=== PATIENT | female | born 1990 | race Caucasian/White ===

== ENCOUNTER → 2018-07-08 | Outpatient (CLI) | payer MEDICAID, SELFPAY ==
[2018-07-15 13:10] LABS: HPV Reflexed? NOT INDICATED
== END | disposition home or self-care (01) ==
PROVIDERS: Visit Provider Obstetrics & Gynecology
DX: Z12.4 Encounter for screening for malignant neoplasm of cervix (principal)
CPT/HCPCS: 88175; G0145

== ENCOUNTER 2018-09-02 09:48 | Day surgery (SDC) | payer MEDICAID, SELFPAY ==
[2018-07-15 10:30] VITALS: BMI 23.8
--- NOTE | 2018-08-12 12:00 | HP_ITS ---
Intake Intake Visit Reasons: 1 WK F/U External Hemorrhoids Casing Fluid Tender Required: No Is patient in pain?: No Allergies No Known Allergies Allergy (Verified 08/12/18 09:42) Medications Ibuprofen [Motrin] 800 mg PO Q6H PRN PRN #40 tab 12/26/14 [Rx Confirmed 08/12/18] Oxycodone [Oxyir] 10 mg PO Q6H PRN PRN #30 tab 12/26/14 [Rx Confirmed 08/12/18] Acyclovir 400 mg PO Q8 #7 days 01/07/15 [Rx Confirmed 08/12/18] hydrocortisone/lidocaine 1 g TOPICAL .2-4 #30 g 07/15/18 [Rx Confirmed 08/12/18] PFSH Medical History Hemorrhoids (Acute) Surgical History History of umbilical hernia (Acute) S/P tubal ligation (Acute) Social History Smoking Status: Current some day smoker alcohol intake: current alcohol intake frequency: a few times a month HPI HPI HPI: JAGDEEP ALBERT, is a 28 F who presents to the office today for HPI HPI Surgical H&P: Yes HPI: JAGDEEP ALBERT, is a 28 F who presents to the office today for follow-up from hemorrhoids, bright red bleeding and pain with bowel movements. Patient states she has been using the cream hydrocortisone 2.5% with lidocaine 5% twice daily not using it sits baths. Patient states her pain has improved from 5?6/10 to a 1?2/10 her which is constant for about a day and half her pain was a 7?8/10. Patient states she has not had really any further bleeding since she been using the cream. ROS General General: No weight change, fatigue or colon cancer Gastro Gastrointestinal: No abdominal pain, No nausea or vomiting, No diarrhea, No constipation, Yes blood in stool, No acid reflux, Yes hemorrhoids, No ulcers, No gallbladder problem, No black,tarry stools Exam Const General: cooperative, comfortable, no acute distress Resp Effort & Inspection: normal respiratory effort Cardio Rate: regular rate GI Inspection: non-distended Palpation: soft, no guarding, nontender Other: YADY: pt deferred Assessment & Plan Problems 1. Hemorrhoids K64.9 2. BRBPR (bright red blood per rectum) K62.5 Plan Discussed with patient recommend colonoscopy due to the red blood per rectum to make sure it is due to the hemorrhoids not due to anything else. Patient was not sure about the colonoscopy as far as financially how much it would cost and how much her insurance care source to pay. We will have the patient talk to her insurance will also send in the request to see what they will cover. Discussed with patient that if it is financially too much for her we could possibly do hemorrhoidectomy without doing a colonoscopy but she could be at risk for having another cause of the bleeding as we did not complete the colonoscopy. And it discussed that if she were to have further bleeding she would need a colonoscopy at that time. Did review the procedure for hemorrhoidectomy with the patient including but not limited to risk of bleeding, infection, additional hemorrhoids in the future were it was not done. Also discussed with patient that this is a painful procedure she will have to do sitz bath 2-3 times daily and also likely apply lidocaine cream 2-3 times daily for several weeks. She will also have to balance pain meds that can cause constipation with stool softeners and laxatives to have soft stools. Patient would plan to have the surgery late September and she has vacation prior. I have discussed the above with the patient. I have offered the patient colonoscopy for evaluation. I have explained the risks/benefits of the procedure and described the procedure. I have discussed the risks with the patient, including but not limited to: infection, bleeding, perforation of the GI tract requiring emergency surgery, inability to complete the procedure, injury to any internal organs, complications of anesthesia, etc. - the patient understands and agrees to proceed. I have answered all the patient's questions to the patient's satisfaction and the patient has no further questions. The patient has been given instructions for the colon cleansing preparation. 1 day of clears, MiraLAX Dulcolax split prep Tabatha Arellano M.D. Pager: [phone] [facility] [address] [place] [address], [facility], [address] [place] [address] Office: [phone] Plan Detail Follow Up We will plan to schedule colonoscopy Coding Level of Care Code Off vis,est,level 3 Diagnoses Hemorrhoids K64.9 BRBPR (bright red blood per rectum) K62.5 08/12/18 1012 <Electronically signed by Tabatha Engel am, MD> Date _ Tabatha Arellano MD I have re-examined the patient. There are no clinical changes since date of exam.
[2018-09-02] VITALS (7 sets, daily range): BP systolic 79–116; BP diastolic 48–71; PULSE 63–84; RESP 16–66; TEMP 36.2–36.8; O2SAT 98–100; BMI 22.1
--- NOTE | 2018-09-02 11:00 | OP.ENDO_ITS ---
09/02/2018 No Primary Care Physician Re : Colonoscopy procedure for Teri Mayen Dear Care Physician This procedure was performed on Sunday, September 02, 2018. My impressions and recommendations are as follows: Impressions : - Hemorrhoids found on perianal exam. - No specimens collected. Recommendations : - Discharge patient to home. - Continue present medications. - Repeat colonoscopy at age 51 for screening purposes. My findings are described in the full procedure note, which is enclosed. If I can be of further assistance, please feel free to contact me at Doctor phone number(s): , Work: . Sincerely, MD Tabatha Lopez MD 09/02/2018 11:00:05 AM This report has been signed electronically.
== END 2018-09-02 11:55 | disposition home or self-care (01) ==
LOC: EN 09:49 → AC 09:51
PROVIDERS: Referring Provider Surgery; Visit Provider Surgery
PROC: 0DJD8ZZ Inspection of Lower Intestinal Tract, Via Natural or Artificial Opening Endoscopic (ICD-10-PCS; CPT 45378; principal; 2018-09-02 10:55)
DX: K64.4 Residual hemorrhoidal skin tags (principal); K64.0 First degree hemorrhoids; F41.9 Anxiety disorder, unspecified; F17.200 Nicotine dependence, unspecified, uncomplicated
CPT/HCPCS: 45378; J7120

== ENCOUNTER → 2019-02-23 10:23 | Outpatient (CLI) | payer MEDICAID, SELFPAY ==
[2018-09-02 10:09] VITALS: BMI 22.1
== END ==
PROVIDERS: Visit Provider Advanced Practice Midwife
DX: N39.0 Urinary tract infection, site not specified (principal)
CPT/HCPCS: 87077; 87086; 87088; 87186

== ENCOUNTER → 2020-07-01 | Outpatient (CLI) | payer BC, MEDICAID, SELFPAY ==
[2018-09-02 10:09] VITALS: BMI 22.1
== END | disposition home or self-care (01) ==
PROVIDERS: Visit Provider Obstetrics & Gynecology
DX: Z11.3 Encounter for screening for infections with a predominantly sexual mode of transmission (principal)

== ENCOUNTER → 2020-08-09 | Outpatient (CLI) | payer BC, MEDICAID, SELFPAY ==
[2018-09-02 10:09] VITALS: BMI 22.1
[2020-08-12 05:06] LABS: Chlamydia By Nucleic Acid AMP Negative (Negative)
[2020-08-12 07:15] LABS: Gonococcus By Nucleic Acid AMP Negative (Negative)
== END | disposition home or self-care (01) ==
LOC: LABSPEC 13:21
PROVIDERS: Visit Provider Obstetrics & Gynecology
DX: Z11.3 Encounter for screening for infections with a predominantly sexual mode of transmission (principal)
CPT/HCPCS: 87491; 87591

== ENCOUNTER 2020-08-15 08:50 | Day surgery (SDC) | payer BC, MEDICAID, SELFPAY ==
[2018-09-02 10:09] VITALS: BMI 22.1
[2020-08-09 11:27] LABS: Hematocrit 37.1 % (37-47); Hemoglobin 12.1 g/dL (12.0-15.0); Mean Corp Hgb Conc 32.6 g/dL (32-36); Mean Corpuscular Hgb 29.7 pg (27.0-32.0); Mean Corpuscular Volume 91.2 fL (81-99); Mean Platelet Vol. 9.1 fl (6.2-12.0); Platelet Count 477 K/mm3 (150-450); RBC Distribution Width CV 12.3 % (11.6-14.6); RBC Distribution Width SD 41.1 fl (35.1-43.9); Red Blood Count 4.07 M/mm3 (4.2-5.4); White Blood Count 6.2 K/mm3 (4.4-11.0)
[2020-08-09 14:32] LABS: Prolactin 16.1 ng/mL; T4 Free Direct 0.98 ng/dL (0.76-1.46)
[2020-08-15] VITALS (7 sets, daily range): BP systolic 90–134; BP diastolic 45–89; PULSE 53–72; RESP 16–18; TEMP 36.1–37.5; O2SAT 94–100; BMI 20.7
[2020-08-15] MEDS: Lactated Ringers 1,000 ML 100 ML IV (09:29)
--- NOTE | 2020-08-15 09:35 | PCM.HP.BLA ---
History and Physical Date of Admission: 08/15/20 Surgical History and Physical Date: 08/15/2020 Name: JAGDEEP MAYEN Age: 30 Date of : 1990 Jagdeep Mayen, a 30 year old female 1 0 0 0 1, presents for Hysteroscopy dilation and curettage, esau endometrial ablation on August 15, 2020 at 10:30. -- Jagdeep has Previous BS with filshie clips in 2014. Cycles have become irregular. She related history of irregular menses with prolonged bleeding. Jagdeep is for hysteroscopy, D, Esau ablation. Manju to have COVID testing 08-14-20. No changes in her health since last vist. LMP 08-03-20. Allergy and medication lists current. Consents signed. Instructions given. Voiced no concerns. MEDICATIONS HISTORY: Patient is also takin. No Meds ALLERGIES: NKDA Infections - Chicken pox and Chlamydia Illnesses - depression and anxiety Accidents - no injuries of consequence Hospitalizations - hospitalized 1 day for PID Review of Systems: GENERAL - Denies fever, or chills SKIN - Denies skin changes EYES - Denies visual changes EARS - Denies difficulty hearing NOSE - Denies nasal congestion or bleeding MOUTH - Denies sore throat or difficulty swallowing NECK - Denies pain or swelling RESPIRATORY - Denies shortness of breath or wheezing CARDIOVASCULAR - Denies palpitations or chest pain GASTROINTESTINAL - Denies nausea, vomiting, diarrhea, constipation, abdominal pain, melena, or bright red blood GENITOURINARY - dysuria, frequency of urination, urgency and feeling of incomplete emptying MUSCULOSKELETAL - Denies joint or muscle pain NEUROLOGICAL - Denies localized numbness or weakness PSYCHIATRIC - Denies depression or anxiety ENDOCRINE - Denies heat or cold intolerance, weight loss or gain HEMATO-IMMUNOLOGIC - Denies excessive bleeding with cuts SOCIAL HISTORY: Alcohol Use - occasionally Smoking - used to smoke but quit Diet - no special diet Lifestyle - recent loss of spouse - 08/27 Exercise - active Seat Belt Use - always Employer - factory work Job Description - [employer] Illicit Drug Use - denies use of street drugs Sexual Activity - active- multiple partners and not currently sexually active Residence - rents an apartment Hours Worked - 40 hours per week Spouse-Sig Other Name - Arnold Mayen - in motorcycle accident 08/2014 Children Name(s) - Claudy (MICHELLE) Control - tubal FAMILY HISTORY: Mother: depression/anxiety. Sister: depression/anxiety. MENSTRUAL HISTORY: LMP Known?- DefiniteAmount/Duration - 7 to 10 days, Regularity - Irregular, LMP - 08/03/20, Age Onset Menarche - 15 PAST PREGNANCIES: Total Pregnancies - 1; Full Term Pregnancies - 1; Premature - 0; Abortions, Induced - 0; Abortions, Spontaneous - 0; Ectopics - 0; Multiple Births - 0; Living Children - 1 SURGICAL HISTORY: 1. 12/26/2014 Lap BTO with Filshie clips (umbilical hernia repair by Dr Jackson) ; Dr Marcos Saleem - 2. breast augmentation - 07/2015 ; - 3. [place] Teeth Removal, 2015 ; - PHYSICAL EXAM BP- 100/62 Sitting, Right arm, regular cuff Weight- 114.87829 lbs Height- 62.5 inch BMI:20.56 CONSTITUTIONAL - NAD, well nourished, and well developed SKIN - No rash, lesions, or ulcers HEENT - Normocephalic, PERRLA, EOMI NECK - No nodes, no nuchal rigidity and thyroid normal size and texture LYMPH NODES - Palpation of lymph nodes in neck and groins within normal limits ABDOMEN - Without hepatosplenomegaly, distention, masses, rebound, or guarding; normal bowel sounds; no hernias EXTREMITIES - No edema or calf tenderness NEUROLOGICAL - Cranial nerves II-XII grossly intact PSYCHIATRIC - A and O to time, place, person, mood and affect External Genital Vagina - non-tender without lesions Urethra/Urethral Meatus - non-tender Bladder - non-tender Vagina - vaginal hawthorne are pink and moist without loss of rugae and no evidence of atrophy Cervix - without cervical motion tenderness and has normal size and features without evident lesions Uterus - 5-6 cm in size, mobile and nontender Adnexa - clear without masses or tenderness ASSESSMENT/PLAN: 1. Encounter For Other Preprocedural Examination Pt with AUB for hysteroscopy D, endometrial ablation No changes in medications. No changes in health. No limitations in activity, no hx of complications with anesthesia R/b/a/ of procedure explained, all questions answered, consent was signed Already s/p tubal ligation 2. Abnormal Uterine And Vaginal Bleeding, Unspecified and Pelvic And Perineal Pain Pt with heavy menstrual cycles s/p Tubal. Discussed OCP vs Ablation vs hysterectomy. u/s Uterus 7.5cm, ovaries physiologic cysts
--- NOTE | 2020-08-15 10:25 | EMB_PTH ---
PATIENT: JAGDEEP ALBERT LOC: [facility] [place] U#:[id number] AGE/SX: 30/F ROOM: RE08/15/[address]: Dr. Alfredo Cm MD : 1990 BED: DIS: 08/15/2020 SPEC #: [id number] RECD: 08/15/20 11:33 STATUS: BLAKE CORNELL #: [id number] ERNESTO: 08/15/20 10:[address]: Alfredo Cm DEPT: SURGICAL PATHOLOGY RECD BY: Radha Enriquez ENTERED: 08/15/20 12:21 SP TYPE: ENDOM BX/C SANTY DR: No Primary Care Phys Tissues: Endometrium, NOS Procedures: Surgery Specimen Level IV HEADER OPERATION: Hysteroscopy, D & C Ivana PRE-OP DIAGNOSIS: Abnormal uterine and vaginal bleeding TISSUE SUBMITTED: Endometrial curettings MICROSCOPIC DIAGNOSIS Endometrium, curettings: Mildly disordered proliferative endometrium with focal glandular breakdown. Mild chronic endometritis. Rare fragments of benign superficial endocervix with squamous mucosa. AM:janette 08/16/2020 MICROSCOPIC DESCRIPTION Slides are reviewed. GROSS DESCRIPTION Received in fixative is one container labeled with the patient's name and designated endometrial curettings. The specimen consists of multiple fragments of pink hemorrhagic soft tissue that in aggregate measure 5 x 3 x 0.2 cm. The entire specimen is submitted in two cassettes. / SJ:janette 08/15/20 TC:3 CPT: 14951
--- NOTE | 2020-08-15 10:29 | OP.PCM_ITS ---
Report of Operation Date of Procedure: 08/15/20 Pre-Operative Diagnosis: Abnormal uterine bleeding Post-Operative Diagnosis: Abnormal uterine bleeding Surgery/Procedure Performed:: Hysteroscopy, dilation curettage, endometrial ablation Description of Surgical Findings:: Surgeon: Alfredo Cm MD Anesthesia: MAC EBL: 5 cc Urine output: 100 cc IV fluids: 600 cc Complications: None Specimen: Endometrial curettage Findings: Hysteroscope revealed no endometrial/uterine pathology. Ivana endometrial ablation device cavity length found to be 5 cm. Post procedure hysteroscopy revealed no new pathology. Consent: Patient with abnormal uterine bleeding in need of hysteroscopy dilation curettage endometrial ablation. Patient understands the risk of the procedure include but are not limited to visceral or vascular injury, prolonged h ospitalization, blood loss and need for transfusion, reoperation. Patient stated understanding and wished proceed. All questions were answered and consent was signed. Procedure: Patient was brought back to the OR where MAC anesthesia was found be adequate. Patient was prepared and draped in a dorsal lithotomy position with yellowfin stirrups. Weighted speculum was placed in the posterior aspect of vagina and cervical dilators were used to dilate cervix. Hysteroscope was inserted and above findings were noted. Sharp endometrial curettage was performed and all quadrants, and sent to pathology. Ivana endometrial ablation device with cavity length set to 5 cm was inserted under direct visualization. Ivana device safety test were passed x2. 120 seconds endometrial ablation performed. Ivana device removed under direct visualization. Post procedure hysteroscope with above findings. Good hemostasis was noted. All counts correct x2. Patient tolerated procedure well was brought to recovery in stable condition.
--- NOTE | 2020-08-15 10:32 | PCM.DC ---
Discharge Instructions Diet Discharge Diet: No restrictions Activity Discharge Activity: Return to Normal Activity, May Drive and May Shower May resume sexual activity in: 4-6 weeks Weight Bearing Status: Weight bearing as tolerated Dressing / Incision Call your doctor if your incision/area has: Continuous Slow Oozing, Sudden Increased Bleeding and Foul Smelling Discharge Call your doctor if you observe: Fever of 101 or Higher, Shortness of breath and Chest pain Follow Up Care Please Follow Up With: Alfredo Cm MD When: 2-week postoperative Test Results: Test results from this visit will be discussed in further detail at your follow-up appointment, if applicable. Discharge Plan Admission Attending Provider: Alfredo Cm Primary Care Provider: Care Physician,Radha Primary Discharge Orders/Prescriptions Prescriptions: No Action NK RF: 0 Disposition Discharge Orders: Discharge Patient (Routine); Ordered 08/15/20 Ordered By: Dr. Alfredo Cm
== END 2020-08-15 12:14 ==
LOC: SDC 08:50 → AC 08:50
PROVIDERS: Referring Provider Obstetrics & Gynecology; Visit Provider Obstetrics & Gynecology
PROC: 0U5B8ZZ Destruction of Endometrium, Via Natural or Artificial Opening Endoscopic (ICD-10-PCS; CPT 58558; principal; 2020-08-15 10:10)
DX: N71.1 Chronic inflammatory disease of uterus (principal); N92.0 Excessive and frequent menstruation with regular cycle; Z20.822 Contact with and (suspected) exposure to COVID-19; Z87.891 Personal history of nicotine dependence
CPT/HCPCS: 58563; 36415; 84146; 84439; 84443; 85027; 86850; 86900; 86901; 87426; 88305; C9803; J7120; J2405

== ENCOUNTER 2020-10-01 09:10 | Day surgery (SDC) | payer BC, MEDICAID, SELFPAY ==
[2020-09-25 13:46] VITALS: BMI 20.7
--- NOTE | 2020-10-01 | HEM_PTH ---
PATIENT: JAGDEEP ALBERT LOC: [facility] [place] U#:[id number] AGE/SX: 30/F ROOM: RE10/01/[address]: Dr. Tabatha Arellano MD : 1990 BED: DIS: 10/01/2020 SPEC #: [id number] RECD: 10/01/20 13:01 STATUS: BLAKE CORNELL #: [id number] ERNESTO: 10/01/20 00:[address]: Tabatha Arellano DEPT: SURGICAL PATHOLOGY RECD BY: Gume Rodríguez ENTERED: 10/01/20 13:02 SP TYPE: HEMORRHOID OTHR DR: No Primary Care Phys Tissues: HEMORRHOIDS Procedures: Surgery Specimen Level III HEADER OPERATION: Hemorrhoidectomy PRE-OP DIAGNOSIS: Hemorrhoids TISSUE SUBMITTED: Hemorrhoids MICROSCOPIC DIAGNOSIS Hemorrhoids, hemorrhoidectomy: Submucosal vascular ectasia and thrombosis consistent with hemorrhoid. AM:janette 10/02/2020 MICROSCOPIC DESCRIPTION Slides are reviewed. GROSS DESCRIPTION Received in fixative is one container labeled with the patient's name and designated hemorrhoids. The specimen consists of a polypoid piece of carrasquillo soft tissue measuring 2 x 1 x 0.5 cm. The specimen is bisected. Also present in the container are three pieces of carrasquillo-white skin measuring in aggregate 1 x 0.3 x 0.2 cm. The entire specimen is submitted in one cassette. / SJ:rg 10/01/20 TC:5 CPT: 29379
[2020-10-01 09:35] VITALS: BP 108/61; PULSE 60; RESP 14; TEMP 36.2; O2SAT 100; BMI 20.7
--- NOTE | 2020-10-01 09:42 | PCM.HP.BLA ---
History and Physical Date of Admission: 10/01/20 Date of Service: 09/25/20 Intake Vital Signs 09/25/20 13:44 09/25/20 13:46 Height 5 ft 2.5 in Weight: 115 lb 8 oz BMI 20.7 20.7 BP 109/62 Blood Pressure Location Rt brachial Position Sitting Respiration 16 Pulse 72 Pulse Source NIBP Temp 98.0 F Temp Source Temporal Pulse Oximetry (%) 98 Intake Visit Reasons: Hemorrhoids Chief Complaint: hemorrhoids Square Shear Operator Required: No Is patient in pain?: No Allergies No Known Allergies Allergy (Verified 09/25/20 13:45) Medications NK 08/08/20 [History Confirmed 09/25/20] Is last menstrual period known: No Post menopausal: No Patient : No PFSH Medical History (Updated 09/25/20 @ 14:[address] Tabatha Arellano MD) Alcohol use Anemia Anxiety Back pain Easy bruising Former smoker Hemorrhoids Restless legs Wears contact lenses Surgical History (Updated 09/25/20 @ 13:44 by Maeve Fuentes) H/O breast augmentation History of endometrial ablation History of umbilical hernia Hx of colonoscopy Hx of wisdom tooth extraction S/P tubal ligation Social History Smoking Status: Former smoker alcohol intake: current alcohol intake frequency: a few times a month HPI HPI HPI: JAGDEEP ALBERT, is a 30 F who presents to the office today for hemorrhoids. Patient states she has been having itching and pain denies any further bleeding and she has had previously but states a continue to be bothersome. Patient did have a colonoscopy in 2019 which only showed hemorrhoids otherwise normal colon. Patient is interested in having hemorrhoidectomy patient does understand that this procedure can be painful for a month or so after. Exam Const General: cooperative, healthy appearing, comfortable and no acute distress Neck Neck: normal visual inspection Resp Effort & Inspection: normal respiratory effort Cardio Rate: regular rate GI Inspection: non-distended Palpation: soft, no guarding and nontender Other: YADY: 12:00 external hemorrhoid and 3:00 external hemorrhoid, likely internal components with both of these (residual external tissue at about 7:00 does not appear to have an internal component.) No gross blood on exam are not other masses noted. Skin General: no rashes or lesions noted Neuro General: patient oriented x3 Psych Affect: normal affect COVID (Procedure Consent) Procedure Criteria Procedure Criteria: Yes Elective The surgeon/proceduralist and patient have discussed in detail the risk of exposure to and/or potential harm posed by the COVID-19 virus with having a surgery/procedure at this time versus the risk of delaying the surgery/procedure. It is not possible to know either the risk of delaying the surgery or procedure or chance of getting an infection with perfect accuracy, but a joint decision was made between the patient and the surgeon/proceduralist to proceed at this time with the scheduled surgery/procedure as indicated on the consent form. Assessment and Plan Assessment and Plan (1) Hemorrhoids: Status: Acute Plan - Dr. Tabatha Arellano MD: Discussed the procedure of hemorrhoidectomy with the patient including risks not limited to bleeding, infection, discomfort/pain after surgery and anesthesia. Patient also understood she would need to do sitz bath's couple times a day as well take stool softeners and try to avoid constipation with pain meds as well. Patient expressed understanding had no further questions this time. We will schedule hemorrhoidectomy. Tabatha Arellano M.D. Pager: [phone] [facility] [address] [place] [address], [address] [place] [address] Office: [phone] Coding Level of Care Code Off vis,est,level 3 Diagnoses Hemorrhoids K64.9 09/25/20 1414<Electronically signed by Tabatha Arellano MD>Date Tabatha Arellano MD
[2020-10-01] MEDS: Lactated Ringers 1,000 ML 100 ML IV (09:50)
[2020-10-01] MEDS: Lubricating Jelly 60 GM Tube 30 GM TOPICAL (10:48)
[2020-10-01] MEDS: BUPIVACAINE LIPOSOME/PF 20 ML VIAL OPERA.SITE (11:05)
[2020-10-01] MEDS: Dibucaine 30 GM Tube 1 APPLIC (11:05)
--- NOTE | 2020-10-01 11:18 | PCM.OPRPT ---
Report of Operation Date of Procedure: 10/01/20 Pre-Operative Diagnosis: Hemorrhoids Post-Operative Diagnosis: Same Surgery/Procedure Performed:: Hemorrhoidectomy Surgeon: Tabatha Arellano Type of Anesthesia: General/Supplemental Anesthesiologist: Kaleb Vega Special Medications: None Specimen's removed: Hemorrhoid Estimated Blood Loss (mL): < 10 cc Description of Procedure: Patient was brought to the operating room. Timeout was completed verifying correct patient, procedure, site, positioning out special equipment prior to beginning procedure. General seizure was induced. Patient was rolled into prone jackknife position on the OR table with appropriate padding. Tape was used to separate the gluteal cheeks. The perineum was prepped and draped in usual sterile fashion with Betadine. Local anesthesia of Exparel 20 cc was used. 10 cc was used for an anal block. Patient was noted to have external hemorrhoidal tissue at 12:00 (with 12:00 being superior) along with internal hemorrhoid as well. At 3:00 (right side) and 7:00 (left side) there is only residual external hemorrhoid tissue. The base of the 12:00 internal hemorrhoid was grasped and sutured with 2-0 Vicryl. The excess tissue was removed with electrocautery careful not to take any sphincter muscle. The hemorrhoidal column was closed using 2-0 chromic running locking suture. The 2 small areas with external residual hemorrhoidal tissue was excised using electrocautery. Interrupted sutures of 4-0 chromic were used at these locations. Gelfoam with dibucaine cream was rolled and placed in the anus. Area was dressed with ABDs and mesh panties were placed. Patient was extubated. Patient tolerated procedure well was taken to the postanesthesia care unit in stable condition. Complications none
--- NOTE | 2020-10-01 11:22 | DCINST_ITS ---
Discharge Instructions Procedure Rectal Surgery Diet Discharge Diet: No restrictions Activity Discharge Activity: Return to Normal Activity and May Not Drive (while you are taking narcotic pain medications. Do not drive, work with heavy equipment or s ign legal documents for 24 hours after your surgery.) Additional Activity Instructions:: Be aware that pain medications may cause nausea. You should typically eat light foods as you take your pain medications. Pain medications may also cause constipation, if you have difficulty with this please discuss with your doctor. Dressing / Incision Additional Dressing/Incision Instructions:: Leave the operative bandage on for 1 days. If a local anesthetic plug was placed in the anal area, try not to expel for [address]ucaine ointment on the perianal area as needed. Sitz baths twice daily and after bowel movements. Follow Up Care Please Follow Up With: Tabatha Arellano MD When: Please call [phone] to schedule a follow up appointment to be seen 7- 14 days after surgery. Test Results: Test results from this visit will be discussed in further detail at your follow-up appointment, if applicable. Discharge Plan Admission Attending Provider: Tabatha Arellano Primary Care Provider: Care Radha Haji Primary Discharge Orders/Prescriptions Prescriptions: New oxycodone-acetaminophen [Endocet] 5-325 mg tablet 1 - 2 tab PO Q6H PRN (Reason: pain) 7 Days Qty: 30 RF: 0 Referrals / Follow Up: Radha Becerra Primary [Primary Care Provider] - Disposition Disposition (needs filled in before D/C Order can be placed): Home, Self Care
[2020-10-01 11:28] VITALS: BP 108/61; BP 118/89; PULSE 82; RESP 18; TEMP 36.3; O2SAT 99
[2020-10-01 11:45] VITALS: BP 106/84; BP 108/61; PULSE 69; RESP 18; O2SAT 98
[2020-10-01 12:00] VITALS: BP 108/61; BP 110/72; PULSE 62; RESP 18; O2SAT 98
[2020-10-01 12:15] VITALS: BP 108/61; BP 111/73; PULSE 61; RESP 18; TEMP 36.4; O2SAT 100
[2020-10-01] MEDS: Acetaminophen 325 MG Tablet 650 MG PO (12:54)
[2020-10-01] MEDS: oxyCODONE 5 MG Tablet 10 MG PO (12:54)
[2020-10-01 13:28] VITALS: BP 108/61; BP 109/67; PULSE 53; RESP 16; TEMP 36.4; O2SAT 100
== END 2020-10-01 13:35 | disposition home or self-care (01) ==
LOC: SDC 09:11 → AC 09:15
PROVIDERS: Referring Provider Surgery; Visit Provider Surgery
PROC: (CPT 46255; principal; 2020-10-01 10:45)
DX: K64.5 Perianal venous thrombosis (principal); K64.9 Unspecified hemorrhoids; G25.81 Restless legs syndrome; Z86.2 Personal history of diseases of the blood and blood-forming organs and certain disorders involving the immune mechanism; Z87.891 Personal history of nicotine dependence
CPT/HCPCS: 46255; 87426; 88304; C9803; J7120; J2405

== ENCOUNTER 2020-10-03 12:10 | Emergency (ER) | payer BC, MEDICAID, SELFPAY ==
[2020-10-03 12:11] VITALS: BP 141/77; PULSE 84; RESP 18; TEMP 37; O2SAT 99; BMI 22.7
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
[2020-10-03] MEDS: oxyCODONE 5 MG Tablet PO (12:49)
== END 2020-10-03 12:52 | disposition home or self-care (01) ==
LOC: ED 12:33
PROVIDERS: Emergency Provider Emergency Medicine
DX: G89.18 Other acute postprocedural pain (principal); V43.52XA Car driver injured in collision with other type car in traffic accident, initial encounter; Y93.9 Activity, unspecified; Y92.9 Unspecified place or not applicable; F41.9 Anxiety disorder, unspecified; G25.81 Restless legs syndrome; Z86.2 Personal history of diseases of the blood and blood-forming organs and certain disorders involving the immune mechanism; Z87.19 Personal history of other diseases of the digestive system; Z87.891 Personal history of nicotine dependence
CPT/HCPCS: 99284

== ENCOUNTER 2020-11-05 09:20 | Day surgery (SDC) | payer BC, MEDICAID, SELFPAY ==
[2020-10-15 09:44] VITALS: BMI 22.7
[2020-11-05] VITALS (7 sets, daily range): BP systolic 77–108; BP diastolic 43–60; PULSE 55–74; RESP 16–18; TEMP 36.2–36.8; O2SAT 97–100; BMI 20.2
--- NOTE | 2020-11-05 | HEM_PTH ---
PATIENT: JAGDEEP ALBERT LOC: [facility] [place] U#:[id number] AGE/SX: 30/F ROOM: RE11/05/[address]: Dr. Tabatha Arellano MD : 1990 BED: DIS: 11/05/2020 SPEC #: [id number] RECD: 11/05/20 12:26 STATUS: BLAKE REDavid #: [id number] ERNESTO: 11/05/20 00:[address]: Tabatha Arellano DEPT: SURGICAL PATHOLOGY RECD BY: Gume Rodríguez ENTERED: 11/05/20 12:26 SP TYPE: HEMORRHOID OTHR DR: No Primary Care Phys Tissues: HEMORRHOIDS Procedures: Surgery Specimen Level III HEADER OPERATION: Hemorrhoidectomy PRE-OP DIAGNOSIS: S/P hemorrhoidectomy; residual hemorrhoid tags TISSUE SUBMITTED: Hemorrhoidal tissue MICROSCOPIC DIAGNOSIS Hemorrhoidal tissue: Polypoid fragments of skin with chronic inflammation, clinically residual hemorrhoidal tag status hemorrhoidectomy. See comment. SJ:janette 11/06/2020 COMMENT Please make reference to previous specimen ([id number]) hemorrhoids, hemorrhoidectomy with ?diagnosis of submucosal vascular ectasia and thrombosis consistent with hemorrhoid.? MICROSCOPIC DESCRIPTION Slides are reviewed. GROSS DESCRIPTION Received in fixative is one container labeled with the patient's name and designated hemorrhoidal tissue. The specimen consists of two pieces of carrasquillo-white skin measuring 0.6 x 0.5 x 0.3 cm and 0.5 x 0.3 x 0.2 cm. Both pieces are bisected. The entire specimen is submitted in one cassette. / SAURAV:janette 11/05/20 TC:5 CPT: 03004
[2020-11-05] MEDS: Lactated Ringers 1,000 ML 100 ML IV (09:48)
--- NOTE | 2020-11-05 10:21 | PCM.HP.BLA ---
History and Physical Date of Admission: 11/05/20 Date of Service: 10/15/20 Intake Vital Signs 10/15/20 09:44 BMI 22.7 Intake Visit Reasons: POST OP HEMRRHOIDECTOMY 10/01 Chief Complaint: hemorrhoids Allergies No Known Allergies Allergy (Verified 10/15/20 09:25) [facility] Medical History (Updated 10/15/20 @ 09:[address] Tabatha Arellano MD) Alcohol use Anemia Anxiety Back pain Easy bruising Former smoker Hemorrhoids Restless legs Wears contact lenses Surgical History (Updated 10/15/20 @ 09:26 by Laura Donahue) H/O breast augmentation History of endometrial ablation History of hysteroscopy History of umbilical hernia Hx of colonoscopy Hx of wisdom tooth extraction S/P hemorrhoidectomy S/P tubal ligation Social History household members: none Smoking Status: Former smoker alcohol intake: current alcohol intake frequency: a few times a month substance use type: does not use HPI HPI HPI: JAGDEEP ALBERT, is a 30 F who presents to the office today for follow-up from hemorrhoidectomy. Patient states she still has some residual hemorrhoidal tissue also been having issue with a rash on her gluteal cheeks unsure if it is from wearing a pad since surgery. Exam Const General: cooperative, healthy appearing, comfortable and no acute distress Neck Neck: normal visual inspection Resp Effort & Inspection: normal respiratory effort Cardio Rate: regular rate GI Inspection: non-distended Palpation: soft, no guarding and nontender Other: YADY: Patient does have some residual hemorrhoidal tissue at 12:00 as the suture has previously come out leaving her with some tags of skin at this area. Otherwise healing well. Irritation of her gluteal cheeks about 3-4 cm from the anus where they come in contact with each other. Skin General: no rashes or lesions noted Neuro General: patient oriented x3 Psych Affect: normal affect Assessment and Plan Assessment and Plan (1) S/P hemorrhoidectomy: Status: Acute (2) Residual hemorrhoid tags: Status: Acute Plan: Patient still has some external residual hemorrhoidal tissue as the suture from the hemorrhoidectomy did come out leaving to little dog tags at about 12:00. Patient discharged having these removed. Thus with patient that could remove these but would plan for the OR with MAC anesthesia. Patient was agreeable with plan. Discussed risk including but not limited to bleeding, infection, etc. Patient no further questions at this time. Tabatha Arellano M.D. Pager: [phone] [facility] [address] [place] [id number] Office: [phone] Coding Level of Care Code Global Post Op Diagnoses S/P hemorrhoidectomy Z98.890; Z87.19 Residual hemorrhoid tags K64.4 10/15/20 1433<Electronically signed by Tabatha Arellano MD>Date Tabatha Arellano MD
--- NOTE | 2020-11-05 11:52 | PCM.OPRPT ---
Report of Operation Date of Procedure: 11/05/20 Pre-Operative Diagnosis: Residual hemorrhoidal tag Post-Operative Diagnosis: Same Surgery/Procedure Performed:: Excision of residual hemorrhoidal tag Surgeon: Tabatha Arellano Type of Anesthesia: MAC/Supplemental Anesthesiologist: Kaleb Vega Specimen's removed: Hemorrhoidal tissue Estimated Blood Loss (mL): < 10 cc Description of Procedure: Patient was brought to the operating room placed in the right decubitus position on the operating table. Timeout was completed verifying correct patient, procedure, site, positioning, special equipment prior to beginning procedure. MAC anesthesia was induced. The perineum was prepped draped in usual sterile fashion with Betadine. Local anesthesia of 1% lidocaine with epinephrine and half percent bupivacaine one-to-one mixture was used. This was injected at the base of the residual hemorrhoidal tissue at 1130 and 1230. Electrocautery was used to excise the residual tissue. Suture of 2-0 chromic interrupted suture was used to close the defect. Hemostasis was assured. 4 x 4's were placed over the area along with ABD and mesh panties. Patient was taken to the postanesthesia care unit in stable condition. Complications none
[2020-11-05] MEDS: Bupivacaine Mpf 0.5% 30 ML VIAL (11:55)
[2020-11-05] MEDS: Lidocaine 1% /Epi 1:100 (20ml) 20 ML Vial (11:55)
--- NOTE | 2020-11-05 11:55 | DCINST_ITS ---
Discharge Instructions Procedure Rectal Surgery Diet Discharge Diet: No restrictions Activity Discharge Activity: Return to Normal Activity and May Not Drive (while you are taking narcotic pain medications. Do not drive, work with heavy equipment or s ign legal documents for 24 hours after your surgery.) Additional Activity Instructions:: Be aware that pain medications may cause nausea. You should typically eat light foods as you take your pain medications. Pain medications may also cause constipation, if you have difficulty with this please discuss with your doctor. Dressing / Incision Additional Dressing/Incision Instructions:: Okay to change the bandage after [address] lidocaine ointment on the perianal area as needed--[id number]. Sitz baths twice daily and after bowel movements. Follow Up Care Please Follow Up With: Tabatha Arellano MD When: Please call [phone] to schedule a follow up appointment to be seen 14 days after surgery. Test Results: Test results from this visit will be discussed in further detail at your follow-up appointment, if applicable. Discharge Plan Admission Attending Provider: Tabatha Arellano Primary Care Provider: Care Physician,Radha Primary Discharge Orders/Prescriptions Prescriptions: New oxycodone-acetaminophen [Endocet] 5-325 mg tablet 1 - 2 tab PO Q6H PRN (Reason: pain) 3 Days Qty: 15 RF: 0 Referrals / Follow Up: Care PhysicianRadha Primary [Primary Care Provider] - Disposition Disposition (needs filled in before D/C Order can be placed): Home, Self Care
== END 2020-11-05 12:47 | disposition home or self-care (01) ==
LOC: SDC 09:20 → AC 09:20
PROVIDERS: Referring Provider Surgery; Visit Provider Surgery
PROC: (CPT 46220; principal; 2020-11-05 10:45)
DX: K64.4 Residual hemorrhoidal skin tags (principal); Z87.19 Personal history of other diseases of the digestive system; Z87.891 Personal history of nicotine dependence
CPT/HCPCS: 00902; 46220; 87426; 88304; C9803; J7120; J2405

== ENCOUNTER 2021-09-01 09:10 | Emergency (ER) | payer BC, MEDICAID, SELFPAY ==
[2021-09-01 09:11] VITALS: BP 122/80; PULSE 77; RESP 14; TEMP 36.4; O2SAT 100; BMI 20.1
--- NOTE | 2021-09-01 09:51 | EDS_ITS ---
HPI HPI - URI History of Present Illness Chief Complaint: Sore Throat Informant: patient Onset/Context/Timing Onset: Days Context: Gradual Onset Timing: Continuous Current Severity: Mild Maximum Severity: Mild Worsened by: Swallowing Associated Symptoms Associated Symptoms: Negative for Nasal Congestion, Headache, Myalgias, Nausea, Vomiting, Shortness of Breath or Nonproductive cough Narrative Narrative: 31-year-old female no seen past medical or any significant past surgical history. States that she developed a sore throat about a week ago. Was seen in urgent care they did a monotest which was negative so they treated her for strep throat. They never did a strep test. But she states she did have white exudate bilaterally. She was treated with Zithromax Z-Daquan which she just finished a couple days ago. States she still has a sore throat now she has a swollen lymph node on the right side of her neck. Able to swallow. No fever. No vomiting or diarrhea. No cough. Prior similar symptoms: No Recent Illness/Hospitalization: No ROS ROS ED ROS Narrative Sore throat. Review of Systems ROS Unobtainable: Denies due to encephalopathy Constitutional Constitutional ED: Denies chills Eyes Eyes: Denies blurry vision ENT ENT ED: Reports ear pain and sore throat Cardiovascular Cardiovascular: Denies chest pain Respiratory/Chest Respiratory/Chest: Denies cough or dyspnea Gastrointestinal Gastrointestinal: Denies abdominal pain, constipation or diarrhea Genitourinary Genitourinary ED: Denies dysuria Musculoskeletal Musculoskeletal: Denies arthralgias Integumentary Denies abscess Neurologic Neurologic: Denies headache(s) Psychiatric Psychiatric: Denies anxiety Endocrine Endocrinology: Denies cold intolerance Hematologic/Lymphatic Hematologic/Lymphatic: Denies easy bleeding Allergic/Immunologic Allergic/Immunologic ED: Denies mouth swelling or tongue swelling [facility] Medical History Alcohol use Anemia Anxiety Back pain Easy bruising Former smoker Hemorrhoids Restless legs Wears contact lenses Home Medications oxycodone-acetaminophen 5 mg-325 mg tablet (Endocet) 1 - 2 tab PO Q6H PRN pain 3 days #15 tabs 11/05/20 [Rx Last Taken Unknown] amoxicillin 500 mg capsule 500 mg PO TID #30 caps 09/01/21 [Rx Last Taken Unknown] Allergy/AdvReac Type Severity Reaction Status Date / Time No Known Allergies Allergy Verified 09/01/21 09:13 Surgical History H/O breast augmentation History of endometrial ablation History of hysteroscopy History of umbilical hernia Hx of colonoscopy Hx of wisdom tooth extraction S/P hemorrhoidectomy S/P tubal ligation Social History household members: none Smoking Status: Former smoker alcohol intake: current alcohol intake frequency: a few times a month substance use type: does not use EXAM Physical Exam Narrative Exam Narrative: Well-appearing 31-year-old female no acute distress. Vital signs are stable and afebrile. H EENT exam posterior pharynx her right tonsillar bed is mildly swollen and red. There is no abscess. She is able to swallow without any difficulty. There is no drooling. There is no stridor. Neck she has 1 solitary swollen tender lymph node on the right. Trachea midline. Posterior cervical chain is no swelling or tenderness more on the left. Lungs are clear. Heart regular rhythm no murmur. Abdomen soft nontender. No axillary or inguinal lymphadenopathy. Moving all 4 extremities. Neurologic exam normal. Const Vital Signs: 09/01/21 09:11 Temperature 97.6 F L Temperature Source Temporal Pulse Rate 77 Respiratory Rate 14 Blood Pressure 122/80 H Blood Pressure Mean 94 Pulse Ox 100 Oxygen Delivery Method Room Air Positive well nourished and well developed; Negative for obese, cachectic or contractures General Appearance ED: well developed; Negative for cachectic, contractures or pallor Nutritional Appearance: Negative for cachectic or obese HEENT Reports moist mucous membranes; Denies dry mucous membranes normocephalic; Negative for atraumatic Face and Sinus: Negative for sinus tenderness Mouth ED: No dry mucous membranes Mouth: No dry mucous membranes Teeth and Gingiva: Negative for caries Throat: tonsils abnormal and posterior oropharynx abnormal; Negative for posterior oropharynx normal Eyes PERRL and EOMs intact bilaterally General Eye ED: Negative for pale conjunctiva or scleral icterus Neck No no lymphadenopathy, supple, no meningeal signs and no JVD Neck Narrative: Single swollen lymph node on the right tender. General: lymphadenopathy; Negative for anterior neck swelling Resp normal respiratory effort and clear to auscultation bilaterally Effort and Inspection: Negative for retractions Auscultation: Negative for rales or rhonchi Cardio S1 normal heart sound, S2 normal heart sound and no murmurs Rate: regular rate; Negative for bradycardia Rhythm: regular rhythm; Negative for abnormal rhythm GI non-tender, non-distended and no masses Inspection: Negative for abdominal distention Auscultation: normoactive bowel sounds Palpation: soft; Negative for tender or guarding Back/Spine no CVA tenderness and normal ROM General Back: Negative for CVA tenderness Cervical Spine: Negative for cervical spine tenderness Thoracic Spine / Upper Back: Negative for thoracic spinal tenderness Extremity normal to inspection and full ROM General Extremety ED: Negative for tenderness Neuro oriented x3 and no sensory deficits noted Sensorium / Orientation: alert, oriented to person, oriented to place and oriented to time; Negative for orientation impaired, lethargic or stuporous Motor Exam: strength 5/5 throughout Psych mental status grossly normal Attitude: No agitated Mood & Affect: Negative for depressed Skin General Skin Exam: Negative for jaundice or pallor Lesions: no lesions Rashes: no rashes Trauma: Negative for abrasion MDM MDM MDM Narrative Medical decision making narrative: Patient with suspected strep throat. He is on a Z-Daquan. Still has swollen red right tonsil but no obvious abscess. No trouble swallowing. Unaffected right anterior chain lymph node. She be placed on amoxicillin 500 3 times daily for 10 days. Warm salt water gargling. Tylenol Motrin. She knows to return if this is not improving or getting worse and we could obtain a CAT scan of the soft tissues of the neck but at this time I do not think that is necessary and this should improve. Discharge Plan Triage Chief Complaint: Sore Throat ED Provider: Bucky Patricio Dx/Rx/DC Orders Clinical Impression: Strep throat, Lymphadenopathy Instructions: ED Pharyngitis, Strep (Presumed) Prescriptions: New amoxicillin 500 mg capsule 500 mg PO TID Qty: 30 0RF No Action oxycodone-acetaminophen [Endocet] 5-325 mg tablet 1 - 2 tab PO Q6H PRN (Reason: pain) 3 Days Qty: 15 0RF Primary Care Provider: Care Physician,No Primary Referrals: Parmjit Ann MD [STAFF PHYSICIAN] - 1 Week if not improving Care Physician,No Primary [Primary Care Provider] - Activity Restrictions/Additional Instructions: Warm salt water gargling. Motrin and for pain. Return or follow-up with your doctor if not improving we could obtain a CAT scan of your neck to rule out an abscess. At this time it does not look like you have that. The antibiotic amoxicillin 1 pill 3 times a day for 10 days. Disposition Disposition: Home, Self Care
[2021-09-01 10:05] VITALS: BP 122/80; PULSE 77; RESP 18
[2021-09-01] MEDS: AMOXICILLIN 500 MG CAPSULE PO (10:05)
== END 2021-09-01 10:11 | disposition home or self-care (01) ==
LOC: ED 10:07
PROVIDERS: Emergency Provider Emergency Medicine; Visit Provider Emergency Medicine
DX: J02.0 Streptococcal pharyngitis (principal); R59.9 Enlarged lymph nodes, unspecified; Z87.891 Personal history of nicotine dependence
CPT/HCPCS: 99283

== ENCOUNTER → 2021-10-28 | Outpatient (CLI) | payer BC, MEDICAID, SELFPAY ==
[2021-10-28 15:05] LABS: Hematocrit 35.3 % (37-47); Hemoglobin 12.4 g/dL (12.0-15.0); Mean Corp Hgb Conc 35.1 g/dL (32-36); Mean Corpuscular Hgb 31.8 pg (27.0-32.0); Mean Corpuscular Volume 90.5 fL (81-99); Platelet Count 433 K/mm3 (150-450); RBC Distribution Width CV 12.4 % (11.6-14.6); RBC Distribution Width SD 40.4 fl (35.1-43.9); White Blood Count 7.2 K/mm3 (4.4-11.0)
[2021-10-28 15:19] LABS: Vitamin D,25 Hydroxy 68.8 ng/mL
[2021-10-28 15:23] LABS: AST(SGOT) 13 U/L (15-37); Alanine Aminotransfer ALT/SGPT 24 U/L (13-56); Albumin, Serum 3.8 g/dL (3.2-5.0); Alkaline Phosphatase 57 U/L (45-117); Anion Gap 7 (5-15); BUN 13 mg/dL (7-18); BUN/Creat Ratio 18.1 RATIO (10-20); Calcium,Total 9.1 mg/dL (8.5-10.1); Chloride 106 mmol/L (98-107); Creatinine, Serum 0.72 mg/dL (0.55-1.02); EST Glomerular Filtration Rate 101 mL/min (>60); Est Glom Filt Rate - Afr Amer 122 mL/min (>60); Globulin 3.7 g/dL (2.2-4.2); Glucose 63 mg/dL (74-106); Iron 62 ug/dL (50-170); Iron Binding Capacity,Total 295 ug/dL (250-450); Potassium 3.7 mmol/L (3.5-5.1); Protein, Total 7.5 g/dL (6.4-8.2); Sodium Level 140 mmol/L (136-145)
== END | disposition home or self-care (01) ==
LOC: MTLAB 11:58
PROVIDERS: Referring Provider Counselor Mental Health; Visit Provider Counselor Mental Health
DX: E55.9 Vitamin D deficiency, unspecified (principal); E61.1 Iron deficiency
CPT/HCPCS: 36415; 80053; 82306; 83540; 83550; 85027

== ENCOUNTER 2021-12-22 15:09 | Outpatient (CLI) | payer BC, MEDICAID, SELFPAY ==
--- NOTE | 2021-12-23 | TONS_PTH ---
PATIENT: JAGDEEP ALBERT LOC: [facility] U#:[id number] AGE/SX: 31/F ROOM: RE12/22/[address]: Dr. Benjamin Tang MD : 1990 BED: DIS: 12/22/2021 SPEC #: [id number] RECD: 12/23/21 13:36 STATUS: BLAKE [place] #: [id number] ERNESTO: 12/23/21 00:[address]: Benjamin Tang DEPT: SURGICAL PATHOLOGY RECD BY: Gume Rodríguez ENTERED: 12/23/21 13:37 SP TYPE: TONSILS OTHR DR: No Primary Care Phys [facility] Tissues: Tonsil, NOS Procedures: Surgery Specimen Level III HEADER OPERATION: Tonsillectomy PRE-OP DIAGNOSIS: Acute recurrent strep tonsillitis TISSUE SUBMITTED: Right and left tonsils, right marked with pin MICROSCOPIC DIAGNOSIS Bilateral tonsils, tonsillectomy: Reactive lymphoid hyperplasia, consistent with chronic tonsillitis. SJ:janette 12/24/2021 MICROSCOPIC DESCRIPTION Slides are reviewed. GROSS DESCRIPTION Received is one container labeled with the patient's name and designated tonsils - pin on right are two tonsils that in aggregate weigh 9.9 gm. The right tonsil has a pin on it and measures 3 x 2 x 1.5 cm. The left tonsil measures 2.5 x 2.2 x 1.5 cm. Both tonsils are similar in appearance. The external surfaces are pink-carrasquillo, smooth, glistening and somewhat lobulated. Focally they are hemorrhagic, granular and bear cautery artifact. Serial cross sections through the tonsils reveal normal tonsillar architecture. Sections are submitted in two cassettes as follows: 1 - right tonsil, 2 - left tonsil. / AM:janette 12/23/2021 TC:3 [facility]: [id number] x2
== END 2021-12-22 23:59 | disposition home or self-care (01) ==
PROVIDERS: Visit Provider Otolaryngology
DX: J03.01 Acute recurrent streptococcal tonsillitis (principal)
CPT/HCPCS: 88304

== ENCOUNTER → 2022-04-22 | Outpatient (CLI) | payer BC, MEDICAID, SELFPAY ==
[2022-04-28 18:35] LABS: HPV APTIMA, High Risk Negative (Negative)
== END | disposition home or self-care (01) ==
LOC: LABSPEC 10:52
PROVIDERS: Visit Provider Obstetrics & Gynecology
DX: Z12.4 Encounter for screening for malignant neoplasm of cervix (principal)
CPT/HCPCS: 87624; 88175; G0145